=== PATIENT | female | born 1950 | race Caucasian/White ===

== ENCOUNTER → 2023-05-28 | Outpatient (REF) | payer MEDICARE, OTHER ==
[2023-05-28 18:56] LABS: FREE T4 1.27 NG/DL (0.89-1.76)
[2023-05-28 18:57] LABS: THYROID STIMULATING HORMONE 8.267 uIU/ML (0.55-4.78)
== END ==
LOC: M LABDRWCV 17:26
DX: E03.9 Hypothyroidism, unspecified (principal)

== ENCOUNTER → 2024-05-10 | Outpatient (REF) | payer MEDICARE, OTHER ==
[2024-05-10 18:31] LABS: FREE T4 1.61 NG/DL (0.89-1.76); THYROID STIMULATING HORMONE 6.894 uIU/ML (0.55-4.78)
[2024-05-10 18:55] LABS: FREE T3 2.7 PG/ML (2.3-4.2); TOTAL T3 75.5 NG/DL (60.0-181.0)
== END ==
LOC: M LABDRWCV 17:27
PROVIDERS: ATTEND Internal Medicine
DX: E03.8 Other specified hypothyroidism (principal)